=== PATIENT | male | born 1960 | race Caucasian/White ===

== ENCOUNTER 2017-06-02 14:18 | Emergency (ER) | payer MEDICAID ==
[~2017-06-02] VITALS: Ht 170.2 cm; Wt 109.0 kg
[2017-06-02] MEDS ORDERED: KETOROLAC 60MG/2ML VIAL IM ONE (20:00)
[2017-06-02 22:55] VITALS: BP 138/57
== END 2017-06-02 22:56 | disposition home or self-care (01) ==
LOC: ER 19:59
DX: M17.11 Unilateral primary osteoarthritis, right knee (principal); R26.2 Difficulty in walking, not elsewhere classified; F17.210 Nicotine dependence, cigarettes, uncomplicated
CPT/HCPCS: 73562; 96372; 99284; J1885; L1830